=== PATIENT | female | born 1970 | race Caucasian/White ===

== ENCOUNTER 2017-04-07 09:03 | Emergency (ER) | payer OTHER ==
[~2017-04-07] VITALS: Ht 172.7 cm; Wt 69.8 kg
[~2017-04-07 09:03] MED LIST: LAC PO; MACROBID100 MG PO; TYLENOL 8 HOUR650 M1 PO; ZOF4 PO
[2017-04-07 09:30] VITALS: BP 143/86
== END 2017-04-07 09:30 | disposition home or self-care (01) ==
LOC: ED 09:03
DX: T78.40XA Allergy, unspecified, initial encounter (principal); X58.XXXA Exposure to other specified factors, initial encounter

== ENCOUNTER 2018-07-12 18:19 | Emergency (ER) | payer OTHER ==
[~2018-07-12] VITALS: Ht 172.7 cm; Wt 70.3 kg
[2018-07-12 18:23] VITALS: Ht 172.7 cm; Wt 70.3 kg
[2018-07-12 18:45] VITALS: BP 141/90
== END 2018-07-12 18:45 | disposition home or self-care (01) ==
LOC: ED 18:19
DX: A08.4 Viral intestinal infection, unspecified (principal); Z90.710 Acquired absence of both cervix and uterus

== ENCOUNTER 2018-08-22 11:48 | Emergency (ER) | payer OTHER ==
[~2018-08-22] VITALS: Ht 170.2 cm; Wt 68.0 kg
[2018-08-22 11:58] VITALS: BP 135/82; Ht 170.2 cm; Wt 68.0 kg
== END 2018-08-22 12:51 | disposition left against medical advice (07) ==
LOC: ED 11:48
DX: M25.50 Pain in unspecified joint (principal); J02.9 Acute pharyngitis, unspecified; M54.9 Dorsalgia, unspecified; Z90.710 Acquired absence of both cervix and uterus

== ENCOUNTER 2018-08-23 13:01 | Emergency (ER) | payer OTHER ==
[~2018-08-23] VITALS: Ht 172.7 cm; Wt 68.6 kg
[2018-08-23 13:23] VITALS: BP 120/92; Ht 172.7 cm; Wt 68.6 kg
== END 2018-08-23 15:25 | disposition home or self-care (01) ==
LOC: ED 13:01
DX: S29.012A Strain of muscle and tendon of back wall of thorax, initial encounter (principal); Z90.710 Acquired absence of both cervix and uterus; X58.XXXA Exposure to other specified factors, initial encounter; Y93.89 Activity, other specified; Y92.89 Other specified places as the place of occurrence of the external cause; Y99.8 Other external cause status

== ENCOUNTER 2018-11-20 11:35 | Emergency (ER) | payer OTHER ==
[~2018-11-20] VITALS: Ht 172.7 cm; Wt 71.4 kg
[2018-11-20 11:58] VITALS: BP 146/92; Ht 172.7 cm; Wt 71.4 kg
== END 2018-11-20 13:00 | disposition left against medical advice (07) ==
LOC: ED 11:35
DX: Z53.21 Procedure and treatment not carried out due to patient leaving prior to being seen by health care provider (principal)

== ENCOUNTER 2018-11-20 13:54 | Emergency (ER) | payer OTHER ==
[~2018-11-20] VITALS: Ht 172.7 cm; Wt 71.7 kg
[2018-11-20 13:59] VITALS: Ht 172.7 cm; Wt 71.7 kg
[2018-11-20 15:53] VITALS: BP 130/70
== END 2018-11-20 15:53 | disposition home or self-care (01) ==
LOC: ED 13:54
DX: J00 Acute nasopharyngitis [common cold] (principal); Z90.710 Acquired absence of both cervix and uterus

== ENCOUNTER 2019-02-04 19:47 | Emergency (ER) | payer OTHER ==
[~2019-02-04] VITALS: Ht 170.2 cm; Wt 71.3 kg
[2019-02-04 20:02] VITALS: BP 136/94; Ht 170.2 cm; Wt 71.3 kg
== END 2019-02-04 20:49 | disposition home or self-care (01) ==
LOC: ED 19:47
DX: J06.9 Acute upper respiratory infection, unspecified (principal); R51 Headache; Z90.710 Acquired absence of both cervix and uterus

== ENCOUNTER 2019-09-02 11:54 | Emergency (ER) | payer OTHER ==
[~2019-09-02] VITALS: Ht 172.7 cm; Wt 70.0 kg
[2019-09-02 12:56] VITALS: BP 145/84; Ht 172.7 cm; Wt 70.0 kg
== END 2019-09-02 13:31 | disposition left against medical advice (07) ==
LOC: ED 11:54
DX: Z53.21 Procedure and treatment not carried out due to patient leaving prior to being seen by health care provider (principal)

== ENCOUNTER 2019-09-02 16:49 | Emergency (ER) | payer OTHER ==
[~2019-09-02] VITALS: Ht 170.2 cm; Wt 71.7 kg
[2019-09-02 17:28] VITALS: Ht 170.2 cm; Wt 71.7 kg
[2019-09-02 19:01] VITALS: BP 129/76
== END 2019-09-02 19:01 | disposition home or self-care (01) ==
LOC: ED 16:49
DX: B34.9 Viral infection, unspecified (principal); Z90.710 Acquired absence of both cervix and uterus
CPT/HCPCS: 87804